=== PATIENT | male | born 1990 | race Asian ===

== ENCOUNTER 2020-11-04 16:45 | Emergency (ER) | payer SELFPAY ==
[~2020-11-04] VITALS: Ht 157.5 cm; Wt 73.6 kg
--- NOTE | 2020-11-04 17:29 | RAD ---
EXAM: AP View of the chest DATE: 11/04/2020 5:13 PM INDICATION: Reason: CHEST PAIN / Spl. Instructions: / History: COMPARISON: No Prior FINDINGS: The heart is not enlarged. Mediastinal and hilar contours are normal. No focal parenchymal airspace opacity. No pleural effusion or pneumothorax. IMPRESSION: 1. No radiographic evidence for acute cardiopulmonary process. Electronically signed by: Nate Umana MD (11/04/2020 5:26 PM) JENNIFER
[2020-11-04] MEDS ORDERED: ACETAMINOPHEN 500 MG TABLET PO ONE (17:45)
[2020-11-04] MEDS ORDERED: IBUPROFEN 400 MG TABLET. PO ONE (17:45)
--- NOTE | 2020-11-04 17:50 | PHYS DOC ---
Past Medical History Past Medical History: No Pertinent History (TRAE MENDEZ MD) Past Surgical History: No Surgical History (TRAE MENDEZ MD) Smoking Status: Current Every Day Smoker Alcohol Use: Heavy Additional Information: DAILY - 'A FEW DRINKS A DAY' (TRAE MENDEZ MD) Adult General Chief Complaint Chief Complaint: CHEST WALL PAIN HPI HPI Patient is a 30 year old male with no known past medical history complaint of new onset of left anterior chest pain. Patient states her last week has had intermittent sensation of burning tingling in his left anterior chest which is then developed into an aching sensation over the superior portion of the s uperficial chest. Denies any associated nausea, vomiting fevers or chills. Denies any known injury to the area. Denies any fever or chills. (TRAE MENDEZ MD) Review of Systems Review of Systems Constitutional: Denies fever or chills [] Eyes: Denies change in visual acuity, redness, or eye pain [] HENT: Denies nasal congestion or sore throat [] Respiratory: Denies cough or shortness of breath [] Cardiovascular: No additional information not addressed in HPI [] GI: Denies abdominal pain, nausea, vomiting, bloody stools or diarrhea [] : Denies dysuria or hematuria [] Musculoskeletal: Denies back pain or joint pain [] Integument: Denies rash or skin lesions [] Neurologic: Denies headache, focal weakness or sensory changes [] Endocrine: Denies polyuria or polydipsia [] All other systems were reviewed and found to be within normal limits, except as documented in this note. (TRAE MENDEZ MD) Current Medications Current Medications Current Medications Medications (Trade) Dose Ordered Sig/Rashi Start Time Stop Time Status Last Admin Dose Admin Acetaminophen (Tylenol) 1,000 mg 1X ONCE 11/04/20 17:45 11/04/20 17:46 DC 11/04/20 17:55 1,000 MG Ibuprofen (Motrin) 800 mg 1X ONCE 11/04/20 17:45 11/04/20 17:46 DC 11/04/20 17:56 800 MG (ELSA CONCEPCION DO) Allergies Allergies Allergies Coded Allergies Type Severity Reaction Last Updated Verified No Known Drug Allergies 11/04/20 No (ELSA CONCEPCION DO) Physical Exam Physical Exam Constitutional: Well developed, well nourished, no acute distress, non-toxic appearance. [] HENT: Normocephalic, atraumatic, bilateral external ears normal, oropharynx moist, no oral exudates, nose normal. [] Eyes: PERRLA, EOMI, conjunctiva normal, no discharge. [] Neck: Normal range of motion, no tenderness, supple, no stridor. [] Cardiovascular:Heart rate regular rhythm, no murmur [] Lungs & Thorax: Bilateral breath sounds clear to auscultation [] Abdomen: Bowel sounds normal, soft, no tenderness, no masses, no pulsatile masses. [] Skin: Warm, dry, no erythema, no rash. [] Back: No tenderness, no CVA tenderness. [] Extremities: No tenderness, no cyanosis, no clubbing, ROM intact, no edema. [] Neurologic: Alert and oriented X 3, normal motor function, normal sensory function, no focal deficits noted. [] Psychologic: Affect normal, judgement normal, mood normal. [] (TRAE MENDEZ MD) Current Patient Data Vital Signs Vital Signs Date Time Temp Pulse Resp B/P (MAP) Pulse Ox O2 Delivery O2 Flow Rate FiO2 11/04/20 18:30 74 160/97 (118) 99 Room Air 11/04/20 16:50 98.9 16 98.9 (ELSA CONCEPCION DO) Lab Values Laboratory Tests Test 11/04/20 18:05 White Blood Count 5.2 x10^3/uL (4.0-11.0) Red Blood Count 4.60 x10^6/uL (4.30-5.70) Hemoglobin 14.8 g/dL (13.0-17.5) Hematocrit 41.7 % (39.0-53.0) Mean Corpuscular Volume 91 fL (79-100) Mean Corpuscular Hemoglobin 32 pg (25-35) Mean Corpuscular Hemoglobin Concent 35 g/dL (31-37) Red Cell Distribution Width 12.3 % (11.5-14.5) Platelet Count 217 x10^3/uL (140-400) Neutrophils (%) (Auto) 68 % (31-73) Lymphocytes (%) (Auto) 24 % (24-48) Monocytes (%) (Auto) 5 % (0-9) Eosinophils (%) (Auto) 2 % (0-3) Basophils (%) (Auto) 1 % (0-3) Neutrophils # (Auto) 3.5 x10^3/uL (1.8-7.7) Lymphocytes # (Auto) 1.3 x10^3/uL (1.0-4.8) Monocytes # (Auto) 0.3 x10^3/uL (0.0-1.1) Eosinophils # (Auto) 0.1 x10^3/uL (0.0-0.7) Basophils # (Auto) 0.1 x10^3/uL (0.0-0.2) Sodium Level 143 mmol/L (136-145) Potassium Level 3.9 mmol/L (3.5-5.1) Chloride Level 105 mmol/L (98-107) Carbon Dioxide Level 28 mmol/L (21-32) Anion Gap 10 (6-14) Blood Urea Nitrogen 14 mg/dL (8-26) Creatinine 1.0 mg/dL (0.7-1.3) Estimated GFR (Cockcroft-Gault) 88.3 Glucose Level 99 mg/dL (70-99) Calcium Level 9.3 mg/dL (8.5-10.1) Magnesium Level 1.9 mg/dL (1.8-2.4) Troponin I Quantitative < 0.017 ng/mL (0.000-0.055) Lipase 97 U/L (73-393) Laboratory Tests 11/04/20 18:05 Laboratory Tests 11/04/20 18:05 (ELSA CONCEPCION DO) EKG EKG [] (TRAE MENDEZ MD) Radiology/Procedures Radiology/Procedures EXAM: AP View of the chest DATE: 11/04/2020 5:13 PM INDICATION: Reason: CHEST PAIN / Spl. Instructions: / History: COMPARISON: No Prior FINDINGS: The heart is not enlarged. Mediastinal and hilar contours are normal. No focal parenchymal airspace opacity. No pleural effusion or pneumothorax. IMPRESSION: 1. No radiographic evidence for acute cardiopulmonary process. Electronically signed by: Nate Umana MD (11/04/2020 5:26 PM) [facility] (TRAE MENDEZ MD) Course & Med Decision Making Course & Med Decision Making Pertinent Labs and Imaging studies reviewed. (See chart for details) 30M nonspecific left anterior chest wall pain that is most likely muscle skeletal in nature. Will obtain ACS rule out, chest x-ray and EKG to make sure there is no other significant cardiopulmonary etiology. (TRAE MENDEZ MD) Dragon Disclaimer Dragon Disclaimer This electronic medical record was generated, in whole or in part, using a voice recognition dictation system. (TRAE MENDEZ MD) Departure Departure Impression: Primary Impression: Chest pain Disposition: HOME / SELF CARE / HOMELESS Condition: STABLE Referrals: NO PCP (PCP) Please follow up with [facility] this week. [address], [address] [place] [address] Phone number: [phone] Patient Instructions: Chest Pain (Nonspecific) Additional Instructions: Thank you for visiting our Emergency Department. We appreciate you trusting us with your care. If any additional problems come up don't hesitate to return to visit us. Please follow up with your primary care provider so they can plan additional care if needed and know about the problem that you had. If symptoms worsen come back to the Emergency Department. Any concerning symptoms that start such as chest pain, shortness of air, weakness or numbness on one side of the body, running high fevers or any other concerning symptoms return to the ER. The HEART Score for CP Pts HEART Score for Chest Pain: HEART Score for Chest Pain Response (Comments) Value History Slighlty/Non-Suspicious 0 ECG Normal 0 Age < 45 0 Risk Factors No Risk Factors 0 Troponin < Normal Limit 0 Total 0 Risk Factors: Risk Factors: DM, Current or recent (<one month) smoker, HTN, HLP, family history of CAD, obesity. Risk Scores: Score 0 - 3: 2.5% MACE over next 6 weeks - Discharge Home Score 4 - 6: 20.3% MACE over next 6 weeks - Admit for Clinical Observation Score 7 - 10: 72.7% MACE over next 6 weeks - Early Invasive Strategies (ELSA CONCEPCION DO) TRAE MENDEZ MD Nov 04, 2020 17:50 ELSA CONCEPCION DO Nov 04, 2020 19:36
[2020-11-04 18:29] LABS: BASO # 0.1 x10^3/uL (0.0-0.2); BASO % 1 % (0-3); EOS # 0.1 x10^3/uL (0.0-0.7); EOS % 2 % (0-3); HEMATOCRIT 41.7 % (39.0-53.0); HEMOGLOBIN 14.8 g/dL (13.0-17.5); LYMPH # 1.3 x10^3/uL (1.0-4.8); LYMPH % 24 % (24-48); MEAN CORPUSCULAR HEMOGLOBIN 32 pg (25-35); MEAN CORPUSCULAR HGB CONC 35 g/dL (31-37); MEAN CORPUSCULAR VOLUME 91 fL (79-100); MONO # 0.3 x10^3/uL (0.0-1.1); MONO % 5 % (0-9); NEUT # 3.5 x10^3/uL (1.8-7.7); NEUT % 68 % (31-73); PLATELET COUNT 217 x10^3/uL (140-400); RED CELL DISTRIBUTION WIDTH 12.3 % (11.5-14.5); WHITE BLOOD COUNT 5.2 x10^3/uL (4.0-11.0)
[2020-11-04 18:46] LABS: CALCIUM 9.3 mg/dL (8.5-10.1); GFR 88.3; POTASSIUM 3.9 mmol/L (3.5-5.1)
[2020-11-04 18:47] LABS: MAGNESIUM 1.9 mg/dL (1.8-2.4)
--- NOTE | 2020-11-04 19:25 | EKG ---
[facility] [address] [place] [address] Test Date: 2020-11-04 Test Time: 16:54:58 Pat Name: MAXINE GARCES Department: Room: Gender: M [employer] Flight [employer]: : 1990 Requested By: TRAE MENDEZ Order Number: [id number] Reading MD: Measurements Intervals Ernul Rate: 90 P: -18 MD: 140 QRS: 6 QRSD: 86 T: 9 QT: 360 QTc: 444 Interpretive Statements SINUS RHYTHM INCOMPLETE RIGHT BUNDLE BRANCH BLOCK NO SPECIFIC ECG ABNORMALITIES RI6.01 No previous ECG available for comparison
[2020-11-04 19:38] VITALS: BP 156/91
== END 2020-11-04 19:45 | disposition home or self-care (01) ==
LOC: ER 16:45
DX: R07.89 Other chest pain (principal); R20.8 Other disturbances of skin sensation; F17.200 Nicotine dependence, unspecified, uncomplicated; F10.10 Alcohol abuse, uncomplicated
CPT/HCPCS: 36415; 71045; 80048; 83690; 83735; 84484; 85025; 93005; 99285